=== PATIENT | male | born 1950 | race Caucasian/White ===

== ENCOUNTER → 2023-07-14 | Outpatient (CLI) | payer MEDICARE, OTHER ==
--- NOTE | 2023-07-17 21:47 | XR ---
EXAMINATION TYPE: XR KUB DATE OF EXAM: 07/14/2023 Comparison: None Clinical History: 72-year-old male N20.0 KUB Findings: Bilateral renal calculi, right more numerous on the left measuring up to 6 mm on the right and 5 mm o n the left. Bilateral pelvic phleboliths. Scattered mild nonobstructive bowel gas pattern. Impression: Bilateral nephrolithiasis, right more numerous than the left, with stones measuring up to 6 mm.
== END | disposition home or self-care (01) ==
LOC: RADXRMAIN 10:08
PROVIDERS: ATTEND Urology
DX: N20.0 Calculus of kidney (principal)
CPT/HCPCS: 74018

== ENCOUNTER → 2023-07-15 | Outpatient (CLI) | payer MEDICARE ==
[2023-07-15 15:08] LABS: Basophils # (A) 0.02 X 10*3/uL (0.00-0.10); Basophils % (A) 0.5 %; Eosinophils # (A) 0.06 X 10*3/uL (0.04-0.35); Eosinophils % (A) 1.5 %; HCT 45.4 % (39.6-50.0); HGB 15.1 g/dL (13.0-17.0); Immature Grans, Automated 0 %; Lymphocytes # (A) 1.44 X 10*3/uL (0.90-5.00); Lymphocytes % (A) 36.4 %; MCH 31.5 pg (27.0-32.0); MCHC 33.3 g/dL (32.0-37.0); MCV 94.6 FL (80.0-97.0); Mean Platelet Volume 11.7 FL (9.5-12.2); Monocytes # (A) 0.37 X 10*3/uL (0.20-1.00); Monocytes % (A) 9.3 %; NRBC Per 100 WBC 0 X 10*3/uL (0.00-0.01); Neutrophils # (A) 2.07 X 10*3/uL (1.80-7.70); Neutrophils % (A) 52.3 %; Platelet Count 124 X 10*3/uL (140-440); RDW 12.6 % (11.5-14.5); WBC 3.96 X 10*3/uL (4.50-10.00)
[2023-07-15 16:01] LABS: Blood Urea Nitrogen 17.2 mg/dL (9.0-27.0); Calcium 9.5 mg/dL (8.7-10.3); Carbon Dioxide 25.5 mmol/L (21.6-31.8); Chloride 104 mmol/L (96-109); Glucose 104 mg/dL (70-110); Potassium 4.6 mmol/L (3.5-5.5); Sodium 140 mmol/L (135-145)
== END | disposition home or self-care (01) ==
LOC: LABPAT 08:19
PROVIDERS: ATTEND Urology
DX: Z01.812 Encounter for preprocedural laboratory examination (principal); N20.0 Calculus of kidney
CPT/HCPCS: 80048; 85025

== ENCOUNTER 2023-07-18 13:12 | Day surgery (SDC) | payer MEDICARE, OTHER ==
[~2023-07-18 13:12] MED LIST: HYDROmorphone 0.5 MG/0.5 ML SYRINGE IVP PRN; LACTATED RINGERS 1,000 ML IV SCH; LIDOCAINE 1% (10MG/ML) FOR IV START INTRADERMA PRN; MIDAZOLAM 2 MG/2 ML VIAL IV PRN
[2023-07-18] MEDS: IV FLUID CONTINUATION 1,000 ML IV ONE ×2 (14:16→15:07)
--- NOTE | 2023-07-18 14:19 | XR ---
EXAMINATION TYPE: XR KUB DATE OF EXAM: 07/18/2023 Comparison: 07/14/2023 Clinical History: 72-year-old male presurgical right-sided kidney stones Findings: Bilateral nephrolithiasis redemonstrated. More numerous calcifications on the right measuring up to 6 mm. Calcifications on the left measuring up to 5 mm. Moderate stool. Pelvic phleboliths. Nonobstruct lyla bowel gas pattern. Impression: Bilateral nephrolithiasis, more numerous on the right measuring up to 6 mm.
[2023-07-18] MEDS: DEXAMETHASONE SOD PHOSPHATE 4 MG/ML 1 ML VIAL IV ONE (14:26)
[2023-07-18] MEDS: ONDANSETRON 4 MG/2 ML VIAL IVP ONE (14:26)
[2023-07-18] MEDS ORDERED: PROPOFOL 10 MG/ML 20 ML VIAL IV ONE (15:04)
[2023-07-18] MEDS ORDERED: KETOROLAC 15 MG/ML 1 ML VIAL ONE (15:04)
[2023-07-18] MEDS ORDERED: ACETAMINOPHEN IV (For NPO) 1,000 MG/100 ML VIAL ONE (15:04)
[2023-07-18] MEDS ORDERED: LIDOCAINE 1% INJ 10MG/ML (20 ML MDV) ONE (15:04)
[2023-07-18] MEDS ORDERED: MIDAZOLAM 2 MG/2 ML VIAL ONE (15:04)
--- NOTE | 2023-07-18 16:20 | P.HPIHPCON ---
History of Present Illness H&P Date: 07/18/23 Chief Complaint: Renal stone This is a 72-year-old male with history of right-sided flank pain, underwent a KUB which showed significant stone burden on the right side. He does have previous history of kidney stones requiring ESWL and ureteroscopy with holmium laser in the past. Discussed with him given the finding of multiple stone the most preferred approach would be to proceed with a ureteroscopy with holmium laser, option of alternative of ESWL was also discussed. Risk benefit of each approach were discussed. He agreed to proceed with right-sided ureteroscopy with holmium laser, aware the risk which includes but not limited to bleeding, infection, injury to the ureter Consent for Procedure: I have explained the operation/procedure to the patient, including the risks, benefits, side effects, alternative therapies (including not receiving the proposed treatment or service), the likelihood of the patient achieving his/her goals, and potential recuperation problems for the procedure/sedation/analgesia, as well as any blood products, if indicated. I also explained to the patient the risks, benefits and side effects of the alternatives, as well as the risks related to not receiving the proposed procedure, care, treatment, or services. Past Medical History Past Medical History: Hyperlipidemia, Hypertension, Prostate Disorder Additional Past Medical History / Comment(s): kidney stones. BPH History of Any Multi-Drug Resistant Organisms: None Reported Past Surgical History: Heart Catheterization With Stent Additional Past Surgical History / Comment(s): parathyroid removed. lt rotator cuff repair, 2 bladder stones removed 2022. lithotripsy. colonoscopy Additional Past Anesthesia/Blood Transfusion Reaction / Comment(s): urinary retention after anesthesia, prefers minimal narcotics. Date of Last Stent Placement:: 2007 Smoking Status: Never smoker - Past Family History Father Family Medical History: Coronary Artery Disease (CAD), CVA/TIA Additional Family Medical History / Comment(s): cabg Mother Family Medical History: Coronary Artery Disease (CAD), CVA/TIA Medications and Allergies Home Medications Medication Instructions Recorded Confirmed Type Androgel 1 pump TOPICAL DAILY 07/15/23 07/18/23 History Aspirin 81 mg PO DAILY 07/15/23 07/18/23 History Finasteride [Proscar] 5 mg PO HS 07/15/23 07/18/23 History Rosuvastatin Calcium 40 mg PO HS 07/15/23 07/18/23 History Tamsulosin [Flomax] 0.4 mg PO BID 07/15/23 07/18/23 History Unk Multi Vitamin 1 tab PO DAILY 07/15/23 07/18/23 History carvediloL [Coreg] 3.125 mg PO TID 07/15/23 07/18/23 History Allergies Allergy/AdvReac Type Severity Reaction Status Date / Time No Known Allergies Allergy Verified 07/18/23 14:54 Surgical - Exam Vital Signs Temp Pulse Resp BP Pulse Ox 99.5 F 71 16 151/74 96 07/18/23 15:02 07/18/23 15:02 07/18/23 15:02 07/18/23 15:02 07/18/23 15:02 - General no distress, moderate pain - Eyes normal ocular movement, no pale - ENT normal nares, normal mucosa - Respiratory normal expansion, normal respiratory effort Assessment and Plan Assessment: OR for right-sided ureteroscopy, homing laser lithotripsy, stone basketing and possible stent insertion
--- NOTE | 2023-07-18 16:25 | P.OP ---
Date of Procedure: 07/18/23 Preoperative Diagnosis: Right renal stones Postoperative Diagnosis: Same Procedure(s) Performed: Cystoscopy, right ureteroscopy, millimeter lithotripsy, stone basketing and stent insertion Implants: 6 Sudanese by 24 cm stent in the right ureter left on a string Anesthesia: ISABEL Surgeon: Micha Busch Estimated Blood Loss (ml): 5 Pathology: other (right renal stone) Condition: stable Disposition: PACU Indications for Procedure: This is a 72-year-old male with history of right-sided flank pain, underwent a KUB which showed significant stone burden on the right side. He does have previous history of kidney stones requiring ESWL and ureteroscopy with holmium laser in the past. Discussed with him given the finding of multiple stone the most preferred approach would be to proceed with a ureteroscopy with holmium laser, option of alternative of ESWL was also discussed. Risk benefit of each approach were discussed. He agreed to proceed with right-sided ureteroscopy with holmium laser, aware the risk which includes but not limited to bleeding, i nfection, injury to the ureter Operative Findings: Right-sided renal pelvis stone, multiple stones throughout the calyces within the kidney, greater than 5 stones were fragmented Description of Procedure: Patient brought to the operating room, general anesthesia was induced. He was prepped and draped in sterile fashion placed in dorsolithotomy position. Cystoscopy fitted with a 21 Sudanese sheath was inserted per urethra, cystoscopy was performed showed a heavily trabeculated bladder with a enlarged prostate with an enlarged median lobe with intravesical extension. There was no additional abnormalities within the bladder, both ureteral orifices within ectopic location. The right ureteral orifice was visualized and intubated with a sensor wire. Next under fluoroscopy 1113 Sudanese access sheath was passed over the wire into the proximal ureter. Next a flexible ureteroscope was inserted through the access sheath, at this point patient had a slight narrowing in the proximal ureter but I was able to navigate the scope past the narrowing into the kidney. Renoscopy was performed showed a large stone in the renal pelvis which was dusted, additional stones were seen in the upper mid and lower calyx that were also dusted, any sizable fragments were removed using the stone basket. Repeat renoscopy showed no sizable stones or injury to the kidney, on fluoroscopy there was no radiopaque densities visualized. Pullback ureteroscopy was performed showed no injury to the ureter or any ureteral stone, given the degree of stone and the slight narrowing at the proximal ureter decision was made to proceed with a stent insertion. At this point a sensor wire was advanced through the ureteroscope and the ureteroscope was withdrawn with the wire in place. Pullback ureteroscopy was performed showed no injury to the ureter or any ureteral stones, all stone fragments were sent for analysis. Next a ureteral stent was passed over the wire, the proximal curl was visualized on fluoroscopy and the distal curl was visualized using the cystoscope. The stent was left on a string and taped to the patient penis. The patient was awakened from anesthesia and taken to recovery in stable condition. He will follow-up in 1 week for stent removal
[2023-07-18 16:26] VITALS: TEMP 96.9
[2023-07-18 16:41] VITALS: RESP 16
--- NOTE | 2023-07-18 16:48 | FL ---
EXAMINATION TYPE: FL guidance operating room Intraoperative/procedural fluoroscopic services were pro vided. Total fluoroscopy time is 27 seconds with a total of 1 submitted images to PACS. Please see th e operative/procedural note for further details. DAP: [id number]
[2023-07-18 17:13] VITALS: BP 158/78; PULSE 63
== END 2023-07-18 17:42 | disposition home or self-care (01) ==
LOC: OR 13:12
PROVIDERS: ATTEND Urology
DX: N20.0 Calculus of kidney (principal); N32.89 Other specified disorders of bladder; N40.0 Benign prostatic hyperplasia without lower urinary tract symptoms; I10 Essential (primary) hypertension; E78.5 Hyperlipidemia, unspecified; D69.6 Thrombocytopenia, unspecified; Z79.82 Long term (current) use of aspirin; Z79.899 Other long term (current) drug therapy
CPT/HCPCS: 82365; 74018; 52356; C2625; C1769; J2250; J1100; J0690; J2405; J2001; J0131; J1885; J2704